=== PATIENT | female | born 1950 ===

== ENCOUNTER → 2019-02-11 11:43 | Outpatient (REF) | payer BC, SELFPAY ==
[2019-02-11 12:05] LABS: Cholesterol 241 mg/dL (140-199); Glucose Promotional 86 mg/dL (80-110); HDL Cholesterol 95 mg/dL (40-60); LDL Cholesterol Calculated 131 mg/dL (<100); Triglycerides 75 mg/dL (35-150)
[2019-02-11 12:21] LABS: Vitamin D 25 Hydroxy (D3) 35.4 ng/mL (30.0-100.0)
== END ==
LOC: LAB 11:43
DX: Z13.1 Encounter for screening for diabetes mellitus (principal); Z13.220 Encounter for screening for lipoid disorders
CPT/HCPCS: 80061; 82306; 82947